=== PATIENT | female | born 1950 | race Caucasian/White ===

== ENCOUNTER 2016-05-01 22:54 | Emergency (ER) | payer BC, OTHER ==
--- NOTE | 2016-05-02 00:26 | ED CLINICAL REPORT ---
Clinical Report - Physicians/Mid Levels [facility] [address] [place] [address] 05/01/2016 22:54 Patient: AMBER WETZEL Time Seen: 00:14. Arrived- By private vehicle. Historian- patient. HISTORY OF PRESENT ILLNESS Chief Complaint: GUMS SORE AND SWELLING UNDER TONGUE. This started today For several days Ms Wetzel has had sore gums. Tonight she felt as though the had swelling under the tongue and whites spots on her tongue and a lump in her throat. She takes lisinopril. and is still present. It was gradual in onset. Pain described as moderate. No sore throat, nasal discharge or congestion, toothache or swollen jaw. No jaw pain or facial pain. She has had mouth sores. Similar symptoms previously: None. REVIEW OF SYSTEMS No fever, cough, difficulty breathing, chest pain or nausea. No diarrhea, abdominal pain, vomiting or difficulty with urination. PAST HISTORY PCP: Carole Quiroz. PROBLEMS: Hypertension. ADDITIONAL SURGERIES: Cholecystectomy. Hernia Repair. Knee Surgery. Skin cancer. Tonsillectomy & Adenoidectomy. SOCIAL HISTORY Current some days smoker. PHYSICAL EXAM Vital Signs: 05/01/2016 23:12 BP: 191/90. HR: 90. RR: 18. O2 saturation: 97%. Temp: 98.2 F. Appearance: Alert. Anxious. Eyes: Conjunctivae/eyelids abnormal. ENT: Pharynx normal. Lips normal. Gums normal. Uvula midline. (Pt notes valate papillae and lingual tonsils). (No lower teeth or clear cut lesions. No swelling of the submental triange. No tongue swelling. Voice is normal). Neck: Neck not supple. Trachea midline. No adenopathy. Thyroid normal. CVS: Heart sounds normal. Respiratory: No respiratory distress. Breath sounds normal. Abdomen: Soft. No organomegaly. Skin: Normal skin color. No rash. Extremities: Extremities exhibit normal ROM. Extremities nontender. PROGRESS AND PROCEDURES Course of Care: Normal voice, exam and lack of problems swallowing saliva rule out current epiglotitis or other acute upper airway or esophageal obstruction. She could have had a resolved episode of angioedema although there is no current angioedema. She will be asked to temporarily discotinue lisinopril. She may have some subtle intra-oral ulcers which would get symptomatic relief with Maalox and Benadryl liquids in a 1:1 mix. Disposition: Discharged. Condition: stable. CLINICAL IMPRESSION Possible acquired angioedema. ORAL PAIN. INSTRUCTIONS (NO DANEROUS SWELLING A PRECAUTION PLEASE STOP YOU LISINOPRIL BECAUSE THERE IS A CONDITION CALLED ANGIOEDEMA WHICH CAN CAUSE TONGUE SWELLING. FOR GUM PAIN MIX LIQUID BENADRYL AND LIQUID MAALOX ON PART TO ONE PART AND USE IT A MOUTH RINSE. IMMEDIATE RECHECK FOR LOTS WORSE MOUTH OR GUM SWELLING.). Your Current Medications: STOP TAKING THE FOLLOWING MEDICATIONS: Lisinopril-Hydrochlorothiazide Oral. Follow-up: Follow up with your doctor. Call for the next available appointment. Reason for referral: TO RE ASSESS LISINOPRIL Understanding of the discharge instructions verbalized by patient. (Electronically signed by Noe Salazar MD 05/02/2016 17:40)
--- NOTE | 2016-05-02 00:26 | ED NURSING NOTES ---
Clinical Report - Nurses [facility] [address] [place] [address] 05/01/2016 22:54 Patient: AMBER WETZEL TRIAGE Triage time 2310. Acuity: LEVEL 4. Chief Complaint: SORE THROAT and MOUTH SORE. --23:16 Paolo Enriquez R.N. 23:12 05/01/16. BP: 191/90. HR: 90. RR: 18. O2 saturation: 97%. Temp: 98.2 F. Pain level now 0/10. --23:16 Paolo Enriquez R.N. Weight: 54.4 kg stated. Height/Length: 67 inches Per Patient. BMI: 18.8. --23:15 Paolo Enriquez R.N. Medications Lisinopril-Hydrochlorothiazide Oral. --23:14 Paolo Enriquez R.N. Allergies Penicillins. --23:14 Paolo Enriquez R.N. Codeine. --23:14 Paolo Enriquez R.N. History Arrived by private vehicle. Historian: patient. Onset. (2 days ago). 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 SOCIAL HX: Heavy tobacco smoker- less than 1 pack per day. No infectious disease exposure. FALL RISK ASSESSMENT: Fall risk assessment completed. No fall risk identified. NUTRITIONAL RISK ASSESSMENT: The nutritional risk assessment revealed no deficiencies. FUNCTIONAL ASSESSMENT: Functional assessment: no impairments noted. LEARNING NEEDS ASSESSMENT: The learning needs assessment revealed no barriers. SKIN INTEGRITY ASSESSMENT: Skin integrity risk assessment completed. No skin integrity risk identified. --23:16 Paolo Enriquez R.N. PROBLEMS: Hypertension. --23:16 Paolo Enriquez R.N. ADDITIONAL SURGERIES: Cholecystectomy. Hernia Repair. Knee Surgery. Skin cancer. Tonsillectomy & Adenoidectomy. --23:16 Paolo Enriquez R.N. Interventions ID band on patient. --23:16 Paolo Enriquez R.N. PHYSICAL ASSESSMENT Ambulatory to room. GENERAL / NEURO / PSYCH: Alert. Oriented X 4. Appears in no acute distress. HEENT: Pupils equal, round and reactive to light. Pharyngeal lesions present. Pharyngeal erythema. Voice within normal limits. No dental injury noted. Dental tenderness. Dental decay. Mucous membranes are pink. RESPIRATORY: Respirations not labored. CVS: Capillary refill less than 2 seconds. SKIN: Skin is warm and dry. Normal skin turgor. --23:17 Paolo Enriquez R.N. NURSING PROGRESS NOTES Head of bed elevated. Reassurance given. Patient identifiers checked. Call light placed in reach. Bed placed in lowest position. Brakes of bed on. --23:18 Paolo Enriquez R.N. DISPOSITION / DISCHARGE Condition at departure: improved. No learning barriers present. Discharge instructions provided and reviewed with the patient. Reviewed warnings. Reviewed medication(s). Treatments reviewed. Patient verbalized understanding. Written instructions provided in Kyrgyz. The patient was discharged by the physician. She was discharged home and unaccompanied at time of discharge. She left the Emergency Department ambulatory and via private vehicle. Patient driving. FALL RISK ASSESSMENT: Fall risk assessment completed. No fall risk identified. --00:57 Paolo Enriquez R.N. 00:56 05/02/16. BP: 188/90. HR: 88. RR: 18. O2 saturation: 98%. Temp: 98 F. Pain level now 3/10. --00:57 Paolo Enriquez R.N. Departure time: 5. --00:57 Paolo Enriquez R.N. Locked/Released at 05/02/2016 0:57 by Paolo Enriquez R.N.
--- NOTE | 2016-05-02 00:26 | ED CLINICAL REPORT ---
Clinical Report - Physicians/Mid Levels [facility] [address] [place] [address] 05/01/2016 22:54 Patient: AMBER WETZEL Time Seen: 00:14. Arrived- By private vehicle. Historian- patient. HISTORY OF PRESENT ILLNESS Chief Complaint: GUMS SORE AND SWELLING UNDER TONGUE. This started today For several days Ms Wetzel has had sore gums. Tonight she felt as though the had swelling under the tongue and whites spots on her tongue and a lump in her throat. She takes lisinopril. and is still present. It was gradual in onset. Pain described as moderate. No sore throat, nasal discharge or congestion, toothache or swollen jaw. No jaw pain or facial pain. She has had mouth sores. Similar symptoms previously: None. REVIEW OF SYSTEMS No fever, cough, difficulty breathing, chest pain or nausea. No diarrhea, abdominal pain, vomiting or difficulty with urination. PAST HISTORY PCP: Carole Quiroz. PROBLEMS: Hypertension. ADDITIONAL SURGERIES: Cholecystectomy. Hernia Repair. Knee Surgery. Skin cancer. Tonsillectomy & Adenoidectomy. SOCIAL HISTORY Current some days smoker. PHYSICAL EXAM Vital Signs: 05/01/2016 23:12 BP: 191/90. HR: 90. RR: 18. O2 saturation: 97%. Temp: 98.2 F. Appearance: Alert. Anxious. Eyes: Conjunctivae/eyelids abnormal. ENT: Pharynx normal. Lips normal. Gums normal. Uvula midline. (Pt notes valate papillae and lingual tonsils). (No lower teeth or clear cut lesions. No swelling of the submental triange. No tongue swelling. Voice is normal). Neck: Neck not supple. Trachea midline. No adenopathy. Thyroid normal. CVS: Heart sounds normal. Respiratory: No respiratory distress. Breath sounds normal. Abdomen: Soft. No organomegaly. Skin: Normal skin color. No rash. Extremities: Extremities exhibit normal ROM. Extremities nontender. PROGRESS AND PROCEDURES Course of Care: Normal voice, exam and lack of problems swallowing saliva rule out current epiglotitis or other acute upper airway or esophageal obstruction. She could have had a resolved episode of angioedema although there is no current angioedema. She will be asked to temporarily discotinue lisinopril. She may have some subtle intra-oral ulcers which would get symptomatic relief with Maalox and Benadryl liquids in a 1:1 mix. Disposition: Discharged. Condition: stable. CLINICAL IMPRESSION Possible acquired angioedema. ORAL PAIN. INSTRUCTIONS (NO DANEROUS SWELLING A PRECAUTION PLEASE STOP YOU LISINOPRIL BECAUSE THERE IS A CONDITION CALLED ANGIOEDEMA WHICH CAN CAUSE TONGUE SWELLING. FOR GUM PAIN MIX LIQUID BENADRYL AND LIQUID MAALOX ON PART TO ONE PART AND USE IT A MOUTH RINSE. IMMEDIATE RECHECK FOR LOTS WORSE MOUTH OR GUM SWELLING.). Your Current Medications: STOP TAKING THE FOLLOWING MEDICATIONS: Lisinopril-Hydrochlorothiazide Oral. Follow-up: Follow up with your doctor. Call for the next available appointment. Reason for referral: TO RE ASSESS LISINOPRIL Understanding of the discharge instructions verbalized by patient. (Electronically signed by Noe Salazar MD 05/02/2016 17:40)
--- NOTE | 2016-05-02 00:26 | ED NURSING NOTES ---
Clinical Report - Nurses [facility] [address] [place] [address] 05/01/2016 22:54 Patient: AMBER WETZEL TRIAGE Triage time 2310. Acuity: LEVEL 4. Chief Complaint: SORE THROAT and MOUTH SORE. --23:16 Paolo Enriquez R.N. 23:12 05/01/16. BP: 191/90. HR: 90. RR: 18. O2 saturation: 97%. Temp: 98.2 F. Pain level now 0/10. --23:16 Paolo Enriquez R.N. Weight: 54.4 kg stated. Height/Length: 67 inches Per Patient. BMI: 18.8. --23:15 Paolo Enriquez R.N. Medications Lisinopril-Hydrochlorothiazide Oral. --23:14 Paolo Enriquez R.N. Allergies Penicillins. --23:14 Paolo Enriquez R.N. Codeine. --23:14 Paolo Enriquez R.N. History Arrived by private vehicle. Historian: patient. Onset. (2 days ago). 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 SOCIAL HX: Heavy tobacco smoker- less than 1 pack per day. No infectious disease exposure. FALL RISK ASSESSMENT: Fall risk assessment completed. No fall risk identified. NUTRITIONAL RISK ASSESSMENT: The nutritional risk assessment revealed no deficiencies. FUNCTIONAL ASSESSMENT: Functional assessment: no impairments noted. LEARNING NEEDS ASSESSMENT: The learning needs assessment revealed no barriers. SKIN INTEGRITY ASSESSMENT: Skin integrity risk assessment completed. No skin integrity risk identified. --23:16 Paolo Enriquez R.N. PROBLEMS: Hypertension. --23:16 Paolo Enriquez R.N. ADDITIONAL SURGERIES: Cholecystectomy. Hernia Repair. Knee Surgery. Skin cancer. Tonsillectomy & Adenoidectomy. --23:16 Paolo Enriquez R.N. Interventions ID band on patient. --23:16 Paolo Enriquez R.N. PHYSICAL ASSESSMENT Ambulatory to room. GENERAL / NEURO / PSYCH: Alert. Oriented X 4. Appears in no acute distress. HEENT: Pupils equal, round and reactive to light. Pharyngeal lesions present. Pharyngeal erythema. Voice within normal limits. No dental injury noted. Dental tenderness. Dental decay. Mucous membranes are pink. RESPIRATORY: Respirations not labored. CVS: Capillary refill less than 2 seconds. SKIN: Skin is warm and dry. Normal skin turgor. --23:17 Paolo Enriquez R.N. NURSING PROGRESS NOTES Head of bed elevated. Reassurance given. Patient identifiers checked. Call light placed in reach. Bed placed in lowest position. Brakes of bed on. --23:18 Paolo Enriquez R.N. DISPOSITION / DISCHARGE Condition at departure: improved. No learning barriers present. Discharge instructions provided and reviewed with the patient. Reviewed warnings. Reviewed medication(s). Treatments reviewed. Patient verbalized understanding. Written instructions provided in Latvian. The patient was discharged by the physician. She was discharged home and unaccompanied at time of discharge. She left the Emergency Department ambulatory and via private vehicle. Patient driving. FALL RISK ASSESSMENT: Fall risk assessment completed. No fall risk identified. --00:57 Paolo Enriquez R.N. 00:56 05/02/16. BP: 188/90. HR: 88. RR: 18. O2 saturation: 98%. Temp: 98 F. Pain level now 3/10. --00:57 Paolo Enriquez R.N. Departure time: 5. --00:57 Paolo Enriquez R.N. Locked/Released at 05/02/2016 0:57 by Paolo Enriquez R.N.
--- NOTE | 2016-05-02 17:40 | ED DISCHARGE INSTRUCTIONS ---
Patient: AMBER WETZEL General Instructions Located Within [facility] VisitID: [id number] [place] [address] 65y, F Registration Date/Time: 05/01/2016 ORAL PAIN. INSTRUCTIONS (NO DANEROUS SWELLING A PRECAUTION PLEASE STOP YOU LISINOPRIL BECAUSE THERE IS A CONDITION CALLED ANGIOEDEMA WHICH CAN CAUSE TONGUE SWELLING. FOR GUM PAIN MIX LIQUID BENADRYL AND LIQUID MAALOX ON PART TO ONE PART AND USE IT A MOUTH RINSE. IMMEDIATE RECHECK FOR LOTS WORSE MOUTH OR GUM SWELLING.). Your Current Medications: STOP TAKING THE FOLLOWING MEDICATIONS: Lisinopril-Hydrochlorothiazide Oral. Follow-up: Follow up with your doctor. Call for the next available appointment. Reason for referral: TO RE ASSESS LISINOPRIL Understanding of the discharge instructions verbalized by patient. ADDITIONAL INFORMATION Angioedema Angioedema (xjlghkavboizpgu-z-gwiqz) is a sudden appearance of swollen patches (edema) on the skin or mucous membranes. The swelling is painless and does not itch. It most often involves the face, lips, mouth, tongue, back of throat or vocal cords. It may also occur in other places such as the arms or legs. A rash may also appear during the first 4 days of this illness. The most common cause for this condition is a side-effect to a class of medicine calledACE inhibitor.This type of drug is used to treat high blood pressure. It includes captopril (Capoten), enalapril (Vasotec) and lisinopril (Prinivil, Zestril). Tell your doctor if you are taking any of these medicines. Other causes of angioedema include allergic reaction to something eaten, touched or inhaled. Angioedema may also be hereditary. In some cases, no cause can be found. Angioedema can lead to the swelling of the air passage in the mouth or throat. Severe swelling can block your breathing and cause . Your doctor believes that you are not at risk for this; however, be alert for early signs of increased swelling in the mouth or throat, or difficulty with swallowing or breathing. Angioedema may recur. It is therefore important to watch for the earliest signs of this condition (below). Return to the hospital promptly if swelling involves the face, mouth or throat areas. Home Care: Rest quietly today. No heavy exertion or excess physical activity. If you were told that your angioedema was from a medicine that you are taking, you must stop taking this medicine. Contact your doctor for a different one. In the future, advise medical staff that you are allergic to this medicine. If medicine was prescribed to treat angioedema (for example, steroids or antihistamines), take it as directed. Oral Benadryl (diphenhydramine) is an antihistamine available at drug and grocery stores. Unless another antihistamine was prescribed, Benadryl may be used to reduce swelling or itching. Use lower doses during the daytime and higher doses at bedtime since the drug may make you sleepy. [NOTE: Do not use Benadryl if you have glaucoma or if you are a man with trouble urinating due to an enlarged prostate.] Claritin (loratidine) is an antihistamine that causes less drowsiness and is a good alternative for daytime use. Follow Up with your doctor or as advised by our staff. Get Prompt Medical Attention if any of the following occur: Increase in swelling of lip, mouth, tongue or throat Trouble swallowing Trouble breathing Severe abdominal pains You have been given the following additional information: Angioedema (Electronically signed by Noe Salazar MD 05/02/2016 17:40)
--- NOTE | 2016-05-02 17:40 | ED MED RECONCILIATION SUMMARY ---
Patient: AMBER WETZEL Medication Reconciliation Report [facility] VisitID: [id number] [address] [place] [address] 65y, F Registration Date/Time: 05/01/2016 Weight: 54.4 kg Height/Length: 67 in. BMI: 18.8 ALLERGIES: Codeine, Penicillins The patient's Home Medications are listed below: STOP TAKING THE FOLLOWING MEDICATIONS: Lisinopril-Hydrochlorothiazide Oral The source(s) of the original Home Medication information: Not obtained. The following Medications were given to the patient in the Emergency Department: None. The following Medications were prescribed to the patient: None.
--- NOTE | 2016-05-02 17:40 | ED MED RECONCILIATION SUMMARY ---
Patient: AMBER WETZEL Medication Reconciliation Report [facility] VisitID: [id number] [address] [place] [address] 65y, F Registration Date/Time: 05/01/2016 Weight: 54.4 kg Height/Length: 67 in. BMI: 18.8 ALLERGIES: Codeine, Penicillins The patient's Home Medications are listed below: STOP TAKING THE FOLLOWING MEDICATIONS: Lisinopril-Hydrochlorothiazide Oral The source(s) of the original Home Medication information: Not obtained. The following Medications were given to the patient in the Emergency Department: None. The following Medications were prescribed to the patient: None.
--- NOTE | 2016-05-02 17:40 | ED MAR SUMMARY ---
..... Medication Administration Record [facility] [address] [place], [place] [id number] Patient: AMBER WETZEL Visit ID: [id number] 65y, F Weight: 54.4 kg Height/Length: 67 in BMI: 18.8 ALLERGIES: Codeine, Penicillins
--- NOTE | 2016-05-02 17:40 | ED MAR SUMMARY ---
..... Medication Administration Record [facility] [address] [place], [place] [id number] Patient: AMBER WETZEL Visit ID: [id number] 65y, F Weight: 54.4 kg Height/Length: 67 in BMI: 18.8 ALLERGIES: Codeine, Penicillins
== END 2016-05-02 00:55 | disposition home or self-care (01) ==
LOC: ED SRH 22:54
DX: K13.79 Other lesions of oral mucosa (principal); I10 Essential (primary) hypertension; F17.200 Nicotine dependence, unspecified, uncomplicated; Z79.899 Other long term (current) drug therapy